=== PATIENT | male | born 2000 | race Hispanic/Latino ===

== ENCOUNTER 2023-05-02 21:27 | Emergency (ER) | payer BC ==
[~2023-05-02] VITALS: Ht 170.2 cm; Wt 90.7 kg
[2023-05-02 21:48] VITALS: BP 125/68; PULSE 80; RESP 18; O2SAT 98
[2023-05-02] MEDS ORDERED: NEOMY SULF/BACITRA/POLYMYXIN B 1 EACH PACKET TP ONE ×2 (21:52→22:00)
[2023-05-02] MEDS ORDERED: HYDROCODONE/ACETAMINOPHEN 5/325 MG TAB ONE (21:53)
[2023-05-02] MEDS ORDERED: AMOX-426 PO (21:53)
[2023-05-02] MEDS ORDERED: IBUP-2070 PO (21:55)
[2023-05-02] MEDS ORDERED: HYDROCODONE/ACETAMINOPHEN 5/325 MG TAB PO ONE (22:00)
[2023-05-02] MEDS ORDERED: AMOX/CLAV 875/125MG TAB PO ONE (22:00)
== END 2023-05-02 22:04 | disposition home or self-care (01) ==
LOC: EDH 21:27
DX: S61.452A Open bite of left hand, initial encounter (principal); W54.0XXA Bitten by dog, initial encounter; Y93.89 Activity, other specified; Y92.89 Other specified places as the place of occurrence of the external cause; Y99.8 Other external cause status
CPT/HCPCS: 73130